=== PATIENT | male | born 1965 | race Caucasian/White ===

== ENCOUNTER 2019-09-14 13:13 | Emergency (ER) | payer SELFPAY ==
[~2019-09-14] VITALS: Ht 162.6 cm; Wt 72.7 kg
[2019-09-14 13:41] VITALS: BP 127/70; Ht 162.6 cm; Wt 72.7 kg
[2019-09-14] MEDS ORDERED: CYCLOBENZAPRINE10 MG PO (14:21)
== END 2019-09-14 15:37 | disposition home or self-care (01) ==
LOC: D.ER 13:13
DX: M54.6 Pain in thoracic spine (principal)

== ENCOUNTER → 2019-10-03 11:22 | Outpatient (CLI) | payer SELFPAY ==
[2019-09-14 13:41] VITALS: BMI 27.5
[~2019-10-03 11:22] MED LIST: CYCLOBENZAPRINE10 MG PO
== END | disposition home or self-care (01) ==
LOC: D.US 11:22
PROVIDERS: ATTEND General Practice
DX: N50.9 Disorder of male genital organs, unspecified (principal)